=== PATIENT | female | born 1970 | race Caucasian/White ===

== ENCOUNTER → 2019-12-11 | Outpatient (CLI) | payer OTHER ==
[~2019-12-11] MED LIST: LEVO50TA PO
[2019-12-11 14:28] LABS: BASO % 0 % (0-3); EOS % 0 % (0-3); HEMATOCRIT 39.5 % (36.0-47.0); HEMOGLOBIN 13.5 g/dL (12.0-15.5); LYMPH # 1.1 x10^3/uL (1.0-4.8); LYMPH % 21 % (24-48); MEAN CORPUSCULAR HEMOGLOBIN 31 pg (25-35); MEAN CORPUSCULAR HGB CONC 34 g/dL (31-37); MEAN CORPUSCULAR VOLUME 91 fL (79-100); MONO # 0.4 x10^3/uL (0.0-1.1); MONO % 8 % (0-9); NEUT # 3.7 x10^3/uL (1.8-7.7); NEUT % 71 % (31-73); PLATELET COUNT 281 x10^3/uL (140-400); RED BLOOD COUNT 4.33 x10^6/uL (3.50-5.40); RED CELL DISTRIBUTION WIDTH 13.2 % (11.5-14.5); WHITE BLOOD COUNT 5.2 x10^3/uL (4.0-11.0)
[2019-12-11 14:55] LABS: ALBUMIN 4.3 g/dL (3.4-5.0); ALBUMIN/GLOBULIN RATIO 1.1 (1.0-1.7); CALCIUM 8.7 mg/dL (8.5-10.1); GFR 59.4; POTASSIUM 4.1 mmol/L (3.5-5.1); TOTAL BILIRUBIN 0.6 mg/dL (0.2-1.0); TOTAL PROTEIN 8.2 g/dL (6.4-8.2)
[2019-12-11 15:24] LABS: BILIRUBIN,URINE NEGATIVE (NEG); CLARITY,URINE CLEAR; COLOR,URINE YELLOW; NITRITE,URINE NEGATIVE (NEG); PH,URINE 5.5 (<5.0-8.0); PROTEIN,URINE NEGATIVE (NEG-TRACE); UROBILINOGEN,URINE 0.2 mg/dL (0.2 mg/dL)
[2019-12-11 15:50] LABS: HYALINE CASTS, URINE MANY /HPF
[2019-12-11 15:51] LABS: BACTERIA,URINE 0 /HPF (0-FEW); RBC,URINE 0 /HPF (0-2); SQUAMOUS EPITHELIAL CELL,UR FEW /LPF
== END | disposition home or self-care (01) ==
LOC: SURGPAT 13:31
PROVIDERS: ATTEND Obstetrics & Gynecology
DX: Z01.818 Encounter for other preprocedural examination (principal); Z11.59 Encounter for screening for other viral diseases; N92.6 Irregular menstruation, unspecified
CPT/HCPCS: 36415; 80053; 81001; 85025; U0003

== ENCOUNTER 2019-12-16 06:13 | Observation (INO) | payer OTHER ==
[2019-12-16] VITALS (9 sets, daily range): BP systolic 93–122; BP diastolic 53–60
[~2019-12-16] VITALS: Ht 172.7 cm; Wt 129.4 kg
[2019-12-16] MEDS ORDERED: HYDROmorphone 2 MG/ML VIAL IV PRN (07:00)
[2019-12-16] MEDS ORDERED: MORPHINE SULFATE 2 MG/ML VIAL. IV PRN ×2 (07:00→12:00)
[2019-12-16] MEDS ORDERED: PROCHLORPERAZINE 10 MG/2 ML VIAL. IV PRN (07:00)
[2019-12-16] MEDS ORDERED: IV RINGERS,LACTATED 1000ML 1,000 ML IV SCH (07:00)
[2019-12-16] MEDS ORDERED: ACETAMINOPHEN 500 MG TABLET PO ONE (07:00)
[2019-12-16] MEDS ORDERED: LIDOCAINE 1% PF 2 ML VIAL. ID PRN (07:00)
[2019-12-16] MEDS ORDERED: fentaNYL PF VIAL 100 MCG/2 ML VIAL IV PRN ×2 (07:00)
[2019-12-16] MEDS ORDERED: ONDANSETRON PF 4 MG/2 ML VIAL. IV PRN ×2 (07:00→12:00)
[2019-12-16] MEDS ORDERED: SEVOFLURANE > 120 MINUTES. IH ONE (07:15)
[2019-12-16] MEDS ORDERED: MIDAZOLAM HCL/PF 2 MG/2 ML VIAL. ONE (07:15)
[2019-12-16] MEDS ORDERED: KETOROLAC 30 MG/ML VIAL. ONE ×2 (07:15)
[2019-12-16] MEDS ORDERED: fentaNYL PF VIAL 100 MCG/2 ML VIAL ONE ×2 (07:15→11:40)
[2019-12-16] MEDS ORDERED: PROPOFOL 10 MG/ML (20ML) VIAL. IV ONE (07:15)
[2019-12-16] MEDS ORDERED: LIDOCAINE 2% PF 5 ML VIAL. ONE (07:15)
[2019-12-16] MEDS ORDERED: DEXAMETHASONE SOD PHOS 4 MG/ML VIAL ONE (07:15)
[2019-12-16] MEDS ORDERED: ROCURONIUM 50 MG/5 ML VIAL. ONE (07:15)
[2019-12-16] MEDS ORDERED: ESTROGENS, CONJ VAGINAL CREAM 30GM TUBE. ONE (07:19)
[2019-12-16] MEDS ORDERED: SURGICEL HEMOSTAT 4X8 EACH. ONE (07:19)
[2019-12-16] MEDS ORDERED: INDIGOTINDISULFONATE SODIUM 40 MG/5 ML AMPUL. ONE (07:20)
[2019-12-16] MEDS ORDERED: BUPIVACAINE-EPI 0.25%-1:200000 MPF 30 ML VIAL. ONE ×3 (07:20→11:13)
[2019-12-16] MEDS ORDERED: GLYCOPYRROLATE 1 MG/5 ML VIAL. ONE (08:13)
[2019-12-16] MEDS ORDERED: NEOSTIGMINE METHYLSULFATE 5 MG/5 ML SYRINGE. ONE (08:13)
[2019-12-16] MEDS ORDERED: ePHEDrine PF IN SALINE 50 MG/10 ML SYRINGE. IV ONE (08:14)
--- NOTE | 2019-12-16 08:37 | PDOC4 ---
Operative Note Operative Note Date: 2019 at 08 34 Preoperative diagnosis: Chronic cholecystitis cholelithiasis Postoperative diagnosis: Same Procedure: Laparoscopic cholecystectomy Surgeon: Aamir Specimen: Gallbladder Dictation: Patient is a 49-year-old female is had right upper quadrant abdominal pain ultrasound showing gallstones. Procedure of laparoscopic cholecystectomy was explained to the patient detail all risk benefits were also discussed including bleeding infection injury to intra-abdominal contents possibly necessitating further open operations alternatives to this procedure also di scussed with the patient who seemed to understand and gave both verbal and written consent to have the procedure performed. Patient was also undergoing hysterectomy at the same setting this will be dictated by Dr. Gomez. Patient was taken to the operating room placed in the supine position general anesthesia was initiated once patient was sleeping intubated she was placed in low lithotomy positioning and her abdomen was prepped and draped usual sterile fashion using ChloraPrep and area just below the umbilicus was injected quarter percent Marcaine with epinephrine incision was made 11 blade scalpel a varies needle was placed within the abdomen creating pneumoperitoneum once this was complete 11 mm port was placed and a 5 mm camera was placed within the abdomen which was inspected no other red maladies were noted. A 5 mm port was placed in the epigastrium a 5 mm port was placed in the right midabdomen and a 5 mm port was placed in the right lateral abdomen. The dome of the gallbladder is grasped directed cephalad there is some adhesions to the body of the gallbladder these were taken down with blunt dissection exposing the infundibulum which was grasped retracted laterally exposing the triangle adherent tissues the triangle were taken down with blunt dissection exposing the cystic duct and cystic artery both were doubly clipped and transected the gallbladder is taken off the liver with hook electrocautery placed in Endo Catch bag moving the umbilicus right upper quadrant was irrigated and suctioned dry hemostasis deemed appropriate. At this point procedure turned over to Dr. Gomez to do her hysterectomy. MAYA FORMAN MD Dec 16, 2019 08:37
[2019-12-16] MEDS ORDERED: 0.9 % SODIUM CHLORIDE 20 ML VIAL. IJ ONE ×5 (08:39→10:37)
[2019-12-16] MEDS ORDERED: LACTULOSE 20 GM/30 ML SOLUTION. PO PRN (12:00)
[2019-12-16] MEDS ORDERED: MAGNESIUM HYDROXIDE 2,400 MG/30 ML ORAL.SUSP. PO PRN (12:00)
[2019-12-16] MEDS ORDERED: MAG HYDROX/ALUMINUM HYD/SIMETH 30 ML ORAL.SUSP PO PRN (12:00)
[2019-12-16] MEDS ORDERED: CALCIUM CARBONATE 500 MG TAB.CHEW PO PRN (12:00)
[2019-12-16] MEDS ORDERED: diphenhydrAMINE HCL 25 MG CAPSULE PO PRN (12:00)
[2019-12-16] MEDS ORDERED: NALOXONE 0.4 MG/ML VIAL. IV PRN (12:00)
[2019-12-16] MEDS ORDERED: ZOLPIDEM 5 MG TABLET. PO PRN (12:00)
[2019-12-16] MEDS ORDERED: diphenhydrAMINE 50 MG/ML VIAL IV PRN (12:00)
[2019-12-16] MEDS ORDERED: oxyCODONE/APAP 5/325 1 TAB TABLET PO PRN (12:00)
[2019-12-16] MEDS ORDERED: 0.9 % SODIUM CHLORIDE 10 ML DISP.SYRIN. IV PRN (12:00)
--- NOTE | 2019-12-16 12:00 | PDOC ---
BRIEF OPERATIVE NOTE Date: Dec 16, 2019 Pre-Op Diagnosis menorrhagia, family history of ovarian cancer, symptomatic cystocele and rectocele Post-Op Diagnosis same Procedure Performed LAVH/BSO/ anterior and posterior repairs, lysis of adhesions Surgeon Dr. Latonia Gomez Bobbin Washer ELFEGO Jerry Anesthesiologist Dr. Rider Anesthesia Type: General Blood Loss 100cc IV Fluid see anesthesia records Urine Output 200cc clear via holland Specimens Obtained cervix, uterus, bilateral tubes and ovaries with some vaginal mucosa as well from repairs Findings 2 degree cystocele, 2-3 degree rectocele, enlarged RV uterus, small cyst on right ovary, mild left sided adhesions Complications none Operative Note [id number] LATONIA GOMEZ MD Dec 16, 2019 12:00
--- NOTE | 2019-12-16 12:47 | OP ---
DATE OF SURGERY: 12/16/2019 PREOPERATIVE DIAGNOSES: Menorrhagia, family history of ovarian cancer, symptomatic cystocele with a large rectocele also. PROCEDURE: Laparoscopic-assisted vaginal hysterectomy, bilateral salpingo-oophorectomy, anterior and posterior colporrhaphies with perineoplasty and lysis of adhesions. SURGEON: Brissa Gomez MD PACKAGE WRAPPER: ELFEGO Palmer ANESTHESIOLOGIST: Dr. Jason Rider. ANESTHESIA: General. BLOOD LOSS: 100 mL. URINE OUTPUT: 200 mL, clear via Hensley catheter. INTRAVENOUS FLUIDS: Please see anesthesia records. SPECIMENS: Cervix, uterus, bilateral tubes and ovaries with some anterior vaginal mucosa from the repairs as well. FINDINGS: She had a second-degree cystocele, second to third-degree rectocele, first to second-degree cervical prolapse and enlarged retroverted uterus, small cyst on the right ovary, mild left-sided adhesions near the IP ligament. COMPLICATIONS: None. DESCRIPTION OF PROCEDURE: This patient was taken to the operating room where general anesthesia was placed. The patient had been placed in the dorsal lithotomy position. Prior to my arrival, Dr. Rutledge started and had placed a 10 mm umbilical port and three upper quadrant ports to do a laparoscopic cholecystectomy. Upon his completion, the three upper ports were pulled and closed with 4-0 nylon by the FA. The 10 mm umbilical port was left in for me. So when I came in, she already had a catheter which was already in place. We did another timeout upon my arrival and then I placed a bivalve speculum in the patient's vagina. A single-tooth tenaculum was used to grasp the anterior lip of the cervix. 12 mL of 0.25% Marcaine with epinephrine were used to circumferentially inject around the cervix for both hemostatic and hemodissection purposes later. The Valtchev uterine manipulator was placed through the endocervical os, locked on the single tooth tenaculum and the bivalve speculum was then removed. Top gloves were discarded and changed. As I previously said, he left his 10 mm umbilical port for me, so the scope was already in and primed. I then did place right and left lower quadrant ports. They were all clear of adhesions after transilluminating the abdominal wall, finding an area clear of any vasculature, making a small incision and placing 5 mm trocars in under direct visualization. The 4-5 mL of air were placed in the trocar cuff. At this point, the patient was placed in Trendelenburg position and there were some slight adhesions noted around the left IP ligament that had to be taken down to identify the ureter. Once these were taken down, we could clearly see the ureter in the mid pelvis, but well out of the way of the IP ligament and peristalsing down, so the LigaSure was used to cauterize and cut the left infundibulopelvic ligament, removing the left tube and ovary per patient request, going over, under the tube and ovary and then crossing the left round ligament as well, cauterizing and cutting the left round. This was done exactly the same on the right. The right side had a small functional cyst on the ovary, but looked otherwise normal. It was elevated and the right ureter was easily found crossing the IP, no adhesions on this side and coursing low in the pelvis and peristalsing. So, staying high on the IP ligament, cauterizing and cutting with the LigaSure again going under the right tube and ovary, taking the tube and ovary per patient request and then crossing the right round ligament as well, cauterizing and cutting with the LigaSure. The bladder flap was then started on this right side, peeled down. It was elevated with the [place] and the monopolar hook was used to just gently score across it and peel it down and it came down great. Once the bladder was down, the uterine vessels were obtained on the right side and then staying inside this pedicle, staying right on the cervix hugging it, going down to the level of the uterosacral, then crossing contralaterally and getting the uterines and staying inside this and hugging the cervix, staying vertical going down inside that pedicle each time to the level of the uterosacrals all the while making sure that the bladder was down. Once this was done, the uterus was completely mobile and free and was blanched and all the blood supply had been obtained, so all instruments were removed from the abdomen and attention was turned vaginally. The single tooth and Valtchev were removed. Thyroid Nini clamps were placed on the anterior and posterior lips of the cervix respectively. A weighted speculum was placed in the patient's vagina and a scalpel was used to make a circumferential incision in the cervix. An open Ray-Shana 4 x 4 was used to gently push up the anterior bladder peritoneum. Cervix was elevated. The posterior cul-de-sac was sharply entered with curved Bay scissors. A #0 Vicryl stitch was used to secure the posterior peritoneum to the vaginal cuff and it was tied and tagged with a curved Felicita clamp and the needle was cut and passed off. The short weighted vaginal speculum was removed and replaced with the long Luis Enrique speculum in the posterior cul-de-sac. At this point, Metzenbaums and the Ray-Shana was used to gently push up the anterior bladder peritoneum until we were in anteriorly. At this point, curved Jose clamps x 2 were placed on the patient's left uterosacral ligament where they were doubly clamped with curved Heaneys, cut with curved Bay scissors and suture ligated x 2 with 0 Vicryl. Second one was taken through the vaginal cuff securing uterosacral ligament to the vaginal cuff, was tagged with a straight Felicita clamp and the needle was cut and passed off. This was done exactly the same on the patient's right side. The uterosacrals were doubly clamped with curved Heaneys, cut with curved Bay scissors and suture ligated x 2 with 0 Vicryl. The second one was taken through the vaginal cuff securing uterosacral ligament to the vaginal cuff, tagged with a straight Felicita clamp and the needle was cut and passed off. The remaining pedicles on both sides were delineated with a curved right angle clamp. The left side was taken around, vaginal LigaSure was used to cauterize and cut the remaining pedicle. The right side was actually completely free. So cervix, uterus, bilateral tubes and ovaries were delivered in total and passed off for permanent pathology. Once this was done, there was some slight bleeding from the left pedicle. It was grasped and the vaginal LigaSure was used to cauterize and cut this with excellent results. There were some clots cleared out of the cul-de-sac. Once these were cleared. Everything looked hemostatic, so the long Luis Enrique speculum was removed and replaced with the short weighted vaginal speculum in the vagina. Long Allis was used to grasp the anterior bladder peritoneum and a 2-0 Vicryl was taken through the anterior bladder peritoneum, left uterosacral ligament, posterior peritoneum and right uterosacral ligament, thus closing the peritoneum in a pursestring like fashion. Once this was done, both uterosacral tags were clipped and passed off. At this point, on the anterior vaginal cuff, Allis clamps were placed and the Metzenbaum scissors were used to open it up and go up to about 1-2 cm below the urethral orifice. It was injected first with, I believe, 40 mL of a dilute solution of 1 part local of the 0.25% to 3 parts injectable saline and it was injected with 40 mL, was opened up and once it was opened up, the Allis clamps were placed along the way as well and then the Metzenbaum scissors were used to sharply release it from the edge and an open Ray-Shana 4 x 4 was used to gently push up the anterior defect. This was done on both sides. There was some slight bleeding from the left side, I did put a 2-0 Vicryl stitch in here with excellent results. There was some thinning in the front where we originally were cutting like releasing it from the cuff and I just put an interrupted 2-0 Vicryl over this as well. It was not an opening, but it was just thinning over that area. Once it was reduced, I believe 4 interrupted sutures were placed and tagged with 2-0 Vicryl and they were then closed in a reverse fashion, reducing the defect and then the excess vaginal mucosa was trimmed and then a full length 2-0 Vicryl was used to close the anterior defect and then transitioned it down to the vaginal cuff and close down to that posterior cuff tags, so it was closed in a complete running locked fashion. The anterior defect all the way down through the vaginal cuff. Once this was done, curved Nino's were placed at 4 and 7 o'clock at the opening of gaping introitus and another, I believe, 32 mL were used. We used a total of 72 mL of that dilute solution of 0.25% Marcaine with epinephrine, one part of that to 3 parts of injectable saline was used in the perineal body and the posterior defect. A wedge-shaped specimen was cut out, a giselle shaped in and then Metzenbaum scissors were used to open up the posterior defect putting Allises along the way here. Once we got up to within a centimeter of that posterior vaginal cuff arnaldo, the Allises were opened up on either side and the defect was reduced from it sharply and bluntly using the Metzenbaum scissors to release it and then the open Ray-Shana 4 x 4 to gently push it up. Once it was up, a series of 5 or 6 interrupted, this was a larger defect, was used to reduce the defect and then the excess mucosa was again trimmed and it was closed in a running locked fashion through the vagina, transitioned down through the perineal body reapproximating the perineal body and then closing the skin subcutaneously over the perineal body defect and then going back into the vagina to tie it off, much like an episiotomy repair with excellent results. I examined everything and everything appeared to be hemostatic. There was some slight oozing from the bottom of the cuff, but nothing bleeding. The posterior defect looked good, so Premarin cream with vaginal packing was placed in the vagina and then it was trimmed the excess that did not go in and leaving a small tag up opening the vagina. All gloves were discarded and changed and attention was turned back above for a second look. She was placed back in Trendelenburg and reinsufflated. Copious irrigation was done to reveal hemostasis. The right upper quadrant appeared dry. The pericolic gutters were clear. There was some slight oozing on the right side. I elevated it up and then used the LigaSure, making sure we were well above the ureters just to get the edges until they were completely dry. Copious irrigation, then again did reveal hemostasis. Tisseel was placed over the vaginal cuff with excellent results. The umbilical port was removed. A #0 Vicryl was used to close the fascia on this one as it was a 10 mm port. The left lower quadrant was removed under direct visualization. The right one was deflated and removed as well. Once this was done, all three port sites, once the fascia was closed in the midline with 0 Vicryl, all three port sites were closed with 4-0 nylon at the skin. All sponge, lap and needle counts were correct x 2 by OR personnel. The patient was awakened from anesthesia and is being brought to recovery room in stable condition. BRISSA GOMEZ MD DR: JULES/santino JOB#: [id number] / [id number]
[2019-12-16] MEDS: SIMETHICONE 80 MG TAB.CHEW PO PRN (17:21)
[2019-12-16] MEDS: IBUPROFEN 400 MG TABLET. PO PRN ×2 (17:22→23:40)
[2019-12-17 01:23] VITALS: BP 109/66
[2019-12-17] MEDS: IBUPROFEN 400 MG TABLET. PO PRN ×3 (06:00→19:38)
[2019-12-17] MEDS: SIMETHICONE 80 MG TAB.CHEW PO PRN (06:03)
[2019-12-17 06:37] VITALS: BP 105/71
[2019-12-17] MEDS ORDERED: LEVOTHYROXINE 50 MCG TABLET PO SCH (07:00)
[2019-12-17 07:14] LABS: CALCIUM 8.6 mg/dL (8.5-10.1); CREATININE 0.9 mg/dL (0.6-1.0); GFR 67.1; POTASSIUM 3.9 mmol/L (3.5-5.1)
--- NOTE | 2019-12-17 09:05 | PDOC ---
SURGICAL PROGRESS NOTE Subjective Patient doing very well, no complaints tolerating diet Vital Signs Vital Signs Date Time Temp Pulse Resp B/P (MAP) Pulse Ox O2 Delivery O2 Flow Rate FiO2 12/17/19 06:37 98.4 77 18 105/71 (82) 98 Room Air 98.4 I&O Intake and Output 12/17/19 07:00 Intake Total 300 ml Output Total 2005 ml Balance -1705 ml Intake Oral 300 ml Output Urine Total 1900 ml Estimated Blood Loss 105 ml PATIENT HAS A JACKSON: No General: Alert, Oriented X3, Cooperative, mild distress Abdomen: Normal bowel sounds, Soft, Other (mild incisional tenderness wounds c/d/i) Labs Laboratory Tests Test 12/16/19 06:33 12/17/19 06:16 Bedside Urine HCG, Qualitative Hcg negative (Negative) Hematocrit 33.2 % (36.0-47.0) Sodium Level 141 mmol/L (136-145) Potassium Level 3.9 mmol/L (3.5-5.1) Chloride Level 104 mmol/L (98-107) Carbon Dioxide Level 29 mmol/L (21-32) Anion Gap 8 (6-14) Blood Urea Nitrogen 10 mg/dL (7-20) Creatinine 0.9 mg/dL (0.6-1.0) Estimated GFR (Cockcroft-Gault) 67.1 Glucose Level 87 mg/dL (70-99) Calcium Level 8.6 mg/dL (8.5-10.1) Laboratory Tests Test 12/17/19 06:16 Hematocrit 33.2 % (36.0-47.0) Sodium Level 141 mmol/L (136-145) Potassium Level 3.9 mmol/L (3.5-5.1) Chloride Level 104 mmol/L (98-107) Carbon Dioxide Level 29 mmol/L (21-32) Anion Gap 8 (6-14) Blood Urea Nitrogen 10 mg/dL (7-20) Creatinine 0.9 mg/dL (0.6-1.0) Estimated GFR (Cockcroft-Gault) 67.1 Glucose Level 87 mg/dL (70-99) Calcium Level 8.6 mg/dL (8.5-10.1) Assessment/Plan S/P L/S Anabel doing well Ok to D/C from my POV Justicifation of Admission Dx: Justifications for Admission: Justification of Admission Dx: N/A MAYA FORMAN MD Dec 17, 2019 09:05
--- NOTE | 2019-12-17 10:58 | PDOC ---
SURGICAL PROGRESS NOTE Subjective Doing well without complaints. Minimal pain, has not even taken narcotics; catheter and vag backing out this am and able to urinate. Tolerating regular diet without problems. Feels good and can go home Vital Signs Vital Signs Date Time Temp Pulse Resp B/P (MAP) Pulse Ox O2 Delivery O2 Flow Rate FiO2 12/17/19 06:37 98.4 77 18 105/71 (82) 98 Room Air 98.4 I&O Intake and Output 12/17/19 07:00 Intake Total 300 ml Output Total 2005 ml Balance -1705 ml Intake Oral 300 ml Output Urine Total 1900 ml Estimated Blood Loss 105 ml PATIENT HAS A JACKSON: No General: Alert, Oriented X3, Cooperative, No acute distress HEENT: Atraumatic Abdomen: Soft, No tenderness, Other (all port sites c/d/i) Extremities: No clubbing, No cyanosis, No edema, No tenderness/swelling Skin: No rashes, No breakdown, No significant lesion Neuro: Normal speech Psych/Mental Status: Mental status NL, Mood NL Labs Laboratory Tests Test 12/16/19 06:33 12/17/19 06:16 Bedside Urine HCG, Qualitative Hcg negative (Negative) Hematocrit 33.2 % (36.0-47.0) Sodium Level 141 mmol/L (136-145) Potassium Level 3.9 mmol/L (3.5-5.1) Chloride Level 104 mmol/L (98-107) Carbon Dioxide Level 29 mmol/L (21-32) Anion Gap 8 (6-14) Blood Urea Nitrogen 10 mg/dL (7-20) Creatinine 0.9 mg/dL (0.6-1.0) Estimated GFR (Cockcroft-Gault) 67.1 Glucose Level 87 mg/dL (70-99) Calcium Level 8.6 mg/dL (8.5-10.1) Laboratory Tests Test 12/17/19 06:16 Hematocrit 33.2 % (36.0-47.0) Sodium Level 141 mmol/L (136-145) Potassium Level 3.9 mmol/L (3.5-5.1) Chloride Level 104 mmol/L (98-107) Carbon Dioxide Level 29 mmol/L (21-32) Anion Gap 8 (6-14) Blood Urea Nitrogen 10 mg/dL (7-20) Creatinine 0.9 mg/dL (0.6-1.0) Estimated GFR (Cockcroft-Gault) 67.1 Glucose Level 87 mg/dL (70-99) Calcium Level 8.6 mg/dL (8.5-10.1) I have reviewed the following labs, vitals and nursing Cardiovascular: No pertinent hx Pulmonary: No pertinent hx GI: No pertinent hx Heme/Onc: No pertinent hx Musculoskeletal: low back pain Renal/: Urinary Incontinence Dermatology: No pertinent hx Assessment/Plan POD#1 s/p LAVH/BSO/ lysis of adhesions and anterior and posterior repairs Routine PO Care d/c to home later today NPV x 6 weeks Light/limited activity x 2 [address] first week or while on narcotic pain meds ok for OTC ibuprofen as needed also keep scheduled office visit already has pain pills written call or return sooner for any other questions or concerns not limited to but including pain unrelieved with pain meds, increased or unexplained vaginal bleeding or T>100.4 Justicifation of Admission Dx: Justifications for Admission: Justification of Admission Dx: N/A BRISSA CAMPBELL MD Dec 17, 2019 10:58
--- NOTE | 2019-12-17 11:03 | PDOC3 ---
Discharge Summary Visit Information Date of Admission: Dec 16, 2019 Date of Discharge: Dec 17, 2019 Final Diagnosis symtomatic pelvic organ prolapse Brief Hospital Course Allergies Allergies Coded Allergies Type Severity Reaction Last Updated Verified No Known Drug Allergies 12/16/19 No Vital Signs Vital Signs Date Time Temp Pulse Resp B/P (MAP) Pulse Ox O2 Delivery O2 Flow Rate FiO2 12/17/19 06:37 98.4 77 18 105/71 (82) 98 Room Air 98.4 Lab Results Laboratory Tests Test 12/16/19 06:33 12/17/19 06:16 Bedside Urine HCG, Qualitative Hcg negative (Negative) Hematocrit 33.2 % (36.0-47.0) Sodium Level 141 mmol/L (136-145) Potassium Level 3.9 mmol/L (3.5-5.1) Chloride Level 104 mmol/L (98-107) Carbon Dioxide Level 29 mmol/L (21-32) Anion Gap 8 (6-14) Blood Urea Nitrogen 10 mg/dL (7-20) Creatinine 0.9 mg/dL (0.6-1.0) Estimated GFR (Cockcroft-Gault) 67.1 Glucose Level 87 mg/dL (70-99) Calcium Level 8.6 mg/dL (8.5-10.1) Laboratory Tests Test 12/17/19 06:16 Hematocrit 33.2 % (36.0-47.0) Sodium Level 141 mmol/L (136-145) Potassium Level 3.9 mmol/L (3.5-5.1) Chloride Level 104 mmol/L (98-107) Carbon Dioxide Level 29 mmol/L (21-32) Anion Gap 8 (6-14) Blood Urea Nitrogen 10 mg/dL (7-20) Creatinine 0.9 mg/dL (0.6-1.0) Estimated GFR (Cockcroft-Gault) 67.1 Glucose Level 87 mg/dL (70-99) Calcium Level 8.6 mg/dL (8.5-10.1) Brief Hospital Course Ms. Mejía is a 49 old female who presented with pelvic pain and urinary incontinence. (also gallbladder issues seeing Dr. Rutledge). She underwent and LAVH/BSO/lysis of adhesions with A&P repairs also lap choley with Dr. Rutledge. She had an unremarkable postoperative course and is AFVSS, eating/drinking/urinating/ minimal pain requiring no narcotics. She will be discharged to home later today. Scant VB Assessment Assessment POD#1 s/p LAVH/BSO/ lysis of adhesions and anterior and posterior repairs Routine PO Care d/c to home later today NPV x 6 weeks Light/limited activity x 2 [address] first week or while on narcotic pain meds ok for OTC ibuprofen as needed also keep scheduled office visit already has pain pills written call or return sooner for any other questions or concerns not limited to but including pain unrelieved with pain meds, increased or unexplained vaginal bleeding or T>100.4 Discharge Information Condition at Discharge: Stable Follow Up: Weeks Disposition/Orders: D/C to Home Scheduled Levothyroxine Sodium (Synthroid) 50 Mcg Tablet, 1 TAB PO DAILY for THYROID SUPPLEMENT, #30 Ref 5 (Reported) Entered as Reported by: MARISOL BARAKAT on 12/11/19 1349 Last Taken: Unknown Dose on 12/16/19 0500 Last Action: Continued on 12/16/19 0738 by BRISSA CAMPBELL Patient Instructions Patient Instructions POD#1 s/p LAVH/BSO/ lysis of adhesions and anterior and posterior repairs Routine PO Care d/c to home later today NPV x 6 weeks Light/limited activity x 2 weeks NO [address] first week or while on narcotic pain meds ok for OTC ibuprofen as needed also keep scheduled office visit already has pain pills written call or return sooner for any other questions or concerns not limited to but including pain unrelieved with pain meds, increased or unexplained vaginal bleeding or T>100.4 Justicifation of Admission Dx: Justifications for Admission: Justification of Admission Dx: Yes BRISSA CAMPBELL MD Dec 17, 2019 11:03
[2019-12-17 13:00] VITALS: BP 120/70
[2019-12-17] MEDS: HYDROcodone/APAP 5/325MG 1 TAB TABLET PO PRN ×3 (14:34→19:46)
[2019-12-17 17:22] VITALS: BP 109/72
--- NOTE | 2019-12-17 19:59 | NUR ---
Returned 1 Lortab, patients only wanted one. Wasted at omni-cell with nursing staff member as witness and adjusted on patient charting.
--- NOTE | 2019-12-18 09:07 | PATHOLOGY ---
[facility] Accession Number: [id number] . 01 Material submitted: . PART A: gallbladder - GALLBLADDER AND CONTENTS PART B: uterus - UTERUS, CERVIX, BILATERAL FALLOPIAN TUBES AND OVARIES, VAGINAL MUCOSA. Modifiers: bilateral . 01 Clinical history: . A. Cholecystitis B. Menorrhagia, pelvic pain, endometriosis . 02 Diagnosis: A. Gallbladder, cholecystectomy: - Cholesterolosis, focal. - Chronic cholecystitis. . B. Uterus and attached bilateral fallopian tubes and ovaries, laparoscopic-assisted vaginal hysterectomy with bilateral salpingo-oophorectomy: - Leiomyomas (2), uterine corpus, the largest measuring 1.6 cm. - Focal chronic inflammation and hypercornification of exocervix. - Slightly disordered proliferative endometrium. - Adenomyosis, uterine corpus, focal. - Congestion of bilateral fallopian tubes. - Cystic follicles of left ovary. - Follicular cyst and cystic follicles of left ovary with focal capsular fibrosis and granulomatous reaction. . Segments of squamous mucosa and underlying fibromuscular tissue, vaginal mucosa: - Mild chronic inflammation. . (JPM:mm; 12/17/2019) [facility] 12/18/2019 0834 Local . 02 Comment: There is no atypia or evidence of malignancy. . (JPM:mml; 12/17/2019) . 02 Electronically signed: . Tyrone Maldonado MD, Pathologist NPI- [id number] . 01 Gross description: . A. The specimen is received in formalin, labeled "Matteo Hero, gallbladder and contents". Received is an intact gallbladder measuring 7.0 x 2.5 x 2.4 cm in greatest dimensions displaying a pink-chandler serosal surface. Opening the specimen reveals a velvety, bile-stained mucosa with a gallbladder wall thickness of 0.1 cm. Calculi are not present, and no masses or lesions are noted grossly. Kiln Loader sections, to include the proximal margin, are submitted in cassette A1. . B. The specimen is received in formalin labeled " Matteo Mejía, uterus, cervix, bilateral fallopian tubes and ovaries, vaginal mucosa". Received is a 141 g, 10.6 x 6.7 x 4.4 cm uterus with attached cervix and attached adnexa, weighing 12 and 19 g, left and right, respectively. The uterine serosa is pink-knutson and smooth in appearance. The 1.8 cm cervical os is surrounded by pale knutson to pink-knutson, smooth ectocervical mucosa. The uterus is oriented using the peritoneal reflection and the anterior paracervical margin is inked black. The uterus is opened laterally to reveal a pink-knutson endocervical canal measuring 3.6 cm in length. The endometrial cavity is triangular measuring 4.8 cm in length by 3.4 cm in width. The endometrium is pale knutson to hemorrhagic in appearance and measures 0.1 cm in thickness. Serial sectioning reveals a knutson-pink, trabeculated myometrium measuring up to 2.3 cm in thickness displaying two intramural fibroids measuring 0.7 and 1.6 cm, as well as a slight amount of possible adenomyosis in the left cornu. . The left adnexa consists of a fimbriated fallopian tube measuring 8.2 cm in length by up to 0.8 cm in diameter attached to a 3.3 x 2.1 x 1.8 cm cystic ovary. The serosal surface of the fallopian tube is pink-purple and shaggy in appearance. Sectioning through the fallopian tube reveals a patent lumen and the fallopian tube appears grossly unremarkable. Sectioning through the ovary reveals multiple cystic structures ranging in size from 0.3 to 0.6 cm filled with blood-tinged fluid. Multiple corpora lutea are identified ranging in size from 0.2 to 0.6 cm. . The right adnexa consists of a fimbriated fallopian tube measuring 6.2 cm in length by up to 0.7 cm in diameter attached to a 4.3 x 2.7 x 2.5 cm cystic ovary. The serosal surface of the fallopian tube is pink-purple and shaggy in appearance. Sectioning through the fallopian tube reveals a patent lumen and the fallopian tube appears grossly unremarkable. Sectioning through the ovary reveals multiple cystic structures ranging in size from 0.3 and 2.6 cm filled with blood-tinged fluid. Multiple corpora lutea are identified ranging in size from 0.3 to 0.8 cm. . Also received within the container are two segments of pale knutson vaginal mucosa measuring 5.5 x 2.7 x 0.4 cm in aggregate dimensions. The specimen is submitted representatively as follows: . B1 12:00 cervix B2 6:00 cervix B3 anterior endomyometrium B4 posterior endomyometrium B5 regional sales representative sections of possible adenomyosis B6 regional sales representative sections of fibroids B7 left adnexa B8-B9 right adnexa B10 regional sales representative sections of separately submitted vaginal mucosa. (CAA; 12/16/2019) QAC/QAC 12/16/2019 1543 Local . 02 Pathologist provided ICD-10: K80.10, D25.9, N72, N85.9, N80.0, N83.202, N76.1 . 02 CPT . 116467, [id number] Specimen Comment: A courtesy copy of this report has been sent to [phone], [phone]- Specimen Comment: [id number] Specimen Comment: Report sent to / DR CAMPBELL Performed at: 01 [facility] [address], [place], [place] [id number] MD Santy Torres MD Phone: [phone] Performed at: 02 [facility] [address] [place], [place] [id number] MD Tyrone Maldonado MD Phone: [phone]
== END 2019-12-17 20:20 | disposition home or self-care (01) ==
LOC: SURG 06:13 → EDUNIT# 07:30 → 3 NORTH 12:00
PROVIDERS: ADMIT Obstetrics & Gynecology; ATTEND Obstetrics & Gynecology
DX: K80.10 Calculus of gallbladder with chronic cholecystitis without obstruction (principal); N92.0 Excessive and frequent menstruation with regular cycle; N81.10 Cystocele, unspecified; N81.6 Rectocele; Z80.41 Family history of malignant neoplasm of ovary
CPT/HCPCS: 36415; 47562; 56810; 57265; 58552; 80048; 81025; 85014; 86850; 86900; 86901; 88304; 88307; A7015; G0378; G0379; J0696; J1100; J1885; J2250; J2704; J2710; J3010; J3480; J3490; J7030